=== PATIENT | female | born 1970 ===

== ENCOUNTER → 2020-05-14 14:34 | Outpatient (CLI) | payer BC, SELFPAY ==
[2020-05-14] MEDS: COVID-19 VACC(MODERNA-1)/PF 100 MCG/0.5 ML VIAL IM (14:46)
== END ==
PROVIDERS: Visit Provider Internal Medicine
DX: Z23 Encounter for immunization (principal)
CPT/HCPCS: 0011A; 91301

== ENCOUNTER → 2020-06-10 15:18 | Outpatient (CLI) | payer BC, SELFPAY ==
[2020-06-10] MEDS: COVID-19 VACC #2, MRNA(MOD) 100 MCG/0.5 ML VIAL IM (15:31)
== END ==
PROVIDERS: Visit Provider Internal Medicine
DX: Z23 Encounter for immunization (principal)
CPT/HCPCS: 0012A; 91301

== ENCOUNTER → 2021-02-17 11:17 | Outpatient (CLI) | payer BC, SELFPAY ==
[2021-02-17 12:17] LABS: COVID19 -Nasal RAPID Negative (Negative)
== END ==
PROVIDERS: Referring Provider Nurse Practitioner; Visit Provider Nurse Practitioner
DX: Z20.822 Contact with and (suspected) exposure to COVID-19 (principal); R09.81 Nasal congestion; R53.83 Other fatigue
CPT/HCPCS: 87635

== ENCOUNTER 2023-11-23 10:37 | Emergency (ER) | payer BC, SELFPAY ==
[2023-11-23 10:43] VITALS: BP 174/84; PULSE 84; RESP 14; TEMP 36.7; O2SAT 99; BMI 22.4
--- NOTE | 2023-11-23 10:46 | DI.RAD.S_ITS ---
PROCEDURE: XR FOOT LT MIN 3V INDICATIONS: foot pain TECHNIQUE: 3 views of the foot were acquired. COMPARISON: None. FINDINGS: Bones: Comminuted fracture of the proximal 2nd metatarsal shaft. No suspicious bony lesions. Plantar calcaneal enthesophyte. Soft tissues: No tibiotalar joint effusion. Achilles tendon appears normal. Dorsal foot swelling. IMPRESSION: Comminuted fracture of the proximal 2nd metatarsal shaft. Dictated by: Juan Francisco Woods M.D. on 11/23/2023 at 11:35 Approved by: Juan Francisco Woods M.D. on 11/23/2023 at 11:36
--- NOTE | 2023-11-23 11:12 | ED.LOWEXIN ---
HPI - Extremity Injury (Lower) General Chief Complaint: Extremity Injury, Lower Stated Complaint: L foot injury poss fracture Time Seen by Provider: 11/23/23 11:01 Source: patient Mode of arrival: Ambulatory History of Present Illness HPI Narrative: Patient is a 52-year-old female who is here for evaluation of a left foot injury. She states that last Sunday she was running in a race when she had a sudden increase in discomfort in the top of her left foot. She has been ambulatory since then but it has been causing quite a bit of pain. She stated that prior to the event on Sunday she did have discomfort in the left foot but she thought it was just the shoes that she was wearing and she was pressing on the foot. No other injuries from the event. No interventions prior to arrival. Related Data Home Medications Medication Instructions Recorded Confirmed sodium,potassium,mag sulfates 17.5 177 ml PO BID 01/22/23 01/22/23 gram-3.13 gram-1.6 gram oral soln Allergies Allergy/AdvReac Type Severity Reaction Status Date / Time No Known Drug Allergies Allergy Verified 11/23/23 10:44 Review of Systems Constitutional Constitutional: Reports system reviewed and no additional complaints, except as documented Musculoskeletal Musculoskeletal: Reports system reviewed and no additional complaints, except as documented Integumentary/Breasts Skin/Breast: Reports system reviewed and no additional complaints, except as documented Patient History Social History Smoking Status: Never smoker Smoking Status: Never smoker alcohol intake frequency: holidays/special occasions only Substance Use Type: does not use Exam Initial Vital Signs Initial Vital Signs: Vital Signs Temperature 98.0 F 11/23/23 10:43 Pulse Rate 84 11/23/23 10:43 Respiratory Rate 14 11/23/23 10:43 Blood Pressure 174/84 H 11/23/23 10:43 Pulse Oximetry 99 11/23/23 10:43 Oxygen Delivery Method Room Air 11/23/23 10:43 Cardio Pulses: dorsalis pedis present on the left Skin General: no rashes or lesions noted Neuro Sensory Exam: no sensory deficits noted Extrem Other: Discomfort with palpation over the metatarsal of the 2nd toe of the left foot. Procedures Orthopedic Splinting/Casting Injury #1: Side: left Lower Extremity Injury Location: foot Lower Extremity Immobilizer: posterior splint Other Orthopedic Equipment: crutches Post splinting neuro exam: intact and no change Post splinting vascular exam: no change Placed by: Nursing Course Orders Ordered: ED Orders 11/23/23 10:46 XR foot LT min 3V Stat Vital Signs Vital signs: Vital Signs - 8 hr 11/23/23 10:43 Temperature 98.0 F Pulse Rate 84 Respiratory Rate 14 Blood Pressure 174/84 H Pulse Oximetry 99 Oxygen Delivery Method Room Air MDM - Extremity Injury (Lower) Imaging Data Extremity x-ray #1: My Impression: Proximal 2nd metatarsal fracture MDM Narrative Medical decision making narrative: Patient was neurovascularly intact. She does have a fracture of the proximal end of the 2nd metatarsal of the left foot. Given her history this probably happened 1 week ago. Most likely a completion of a stress fracture. She was placed in a posterior splint and made nonweightbearing. Will have her follow up with Orthopedic surgery. She was given return precautions. She expressed understanding and agreement. Discharge Plan Departure Patient Disposition: Home Clinical Impression: Metatarsal fracture Instructions: How to Use Crutches, DI for Foot Fracture, How to Take Care of Your Splint Activity Restrictions/Additional Instructions: the splint that was placed today needs to be treated like a cast. You do need to use the crutches not walk on your left foot. You will need follow-up with Orthopedic surgery. Please contact them with the number provided below. Prescriptions: No Action sodium,potassium,mag sulfates 17.5-3.13-1.6 gram recon soln 177 ml PO BID Referrals: Shelley Monreal MD [Physician] - Miscellaneous,MD Elias [Primary Care Provider] - Stand Alone Forms: Patient Portal/API
[2023-11-23 11:59] VITALS: BP 135/79; PULSE 64; RESP 16; O2SAT 98
== END 2023-11-23 11:59 | disposition home or self-care (01) ==
PROVIDERS: Emergency Provider Emergency Medicine
DX: S92.322A Displaced fracture of second metatarsal bone, left foot, initial encounter for closed fracture (principal); X58.XXXA Exposure to other specified factors, initial encounter
CPT/HCPCS: 29515; 73630; 99283

== ENCOUNTER 2024-08-01 20:20 | Emergency (ER) | payer BC, SELFPAY ==
[2024-08-01 20:23] VITALS: BP 162/90; PULSE 68; RESP 18; TEMP 36.8; O2SAT 100; BMI 22.6
--- NOTE | 2024-08-01 20:28 | DI.RAD.S_ITS ---
PROCEDURE: XR WRIST RT MIN 3V INDICATIONS: fall on outstretched hand TECHNIQUE: 3 views of the wrist were acquired. COMPARISON: None. FINDINGS: Bones: Mildly comminuted, displaced intra-articular fracture of the distal right radius with dorsal angulation of the distal fracture fragment. Overlying soft tissue edema. Other visualized osseous structures appear intact. The scaphoid appears intact with normal scapholunate interval. No suspicious osseous lesions. Soft tissues: No suspicious soft tissue calcifications. IMPRESSION: Comminuted, intra-articular fracture of the distal right radius. Dictated by: Tony Puri M.D. on 08/01/2024 at 21:00 Approved by: Tony Puri M.D. on 08/01/2024 at 21:01
--- NOTE | 2024-08-01 20:28 | DI.RAD.S_ITS ---
PROCEDURE: XR HAND RT MIN 3V INDICATIONS: fall on outstretched hand TECHNIQUE: 3 views of the hand(s) acquired. COMPARISON: [facility], CR, XR WRIST RT MIN 3V, 08/01/2024, 20:28. FINDINGS: Bones: Comminuted, intra-articular fracture of the distal right radius with mild dorsal angulation of the distal fracture fragment. Overlying soft tissue swelling. Visualized osseous structures of the right hand appear intact without fracture or dislocation. Stable appears intact. Mild polyarticular background degenerative changes of the right hand. Soft tissues: No suspicious soft tissue calcifications. IMPRESSION: Comminuted, mildly displaced fracture of the distal right radius with intra-articular extension. No acute fractures or dislocations visualized in the bony structures of the right hand. Background degenerative changes. Dictated by: Tony Puri M.D. on 08/01/2024 at 21:01 Approved by: Tony Puri M.D. on 08/01/2024 at 21:03
--- NOTE | 2024-08-01 20:28 | DI.RAD.S_ITS ---
PROCEDURE: XR FOREARM RT 2V INDICATIONS: fall on outstretched hand TECHNIQUE: 2 views of the forearm were acquired. COMPARISON: None. FINDINGS: Bones: Comminuted intra-articular fracture of the distal right radius with dorsal angulation of the distal fracture fragment. Overlying soft tissue edema. Ulna appears intact. No suspicious osseous lesions. Soft tissues: No suspicious soft tissue calcifications or masses. IMPRESSION: Comminuted, intra-articular fracture of the distal right radius. Dictated by: Tony Puri M.D. on 08/01/2024 at 20:59 Approved by: Tony Puri M.D. on 08/01/2024 at 21:00
--- NOTE | 2024-08-01 23:52 | ED.GENADULT ---
HPI - General Adult General Chief complaint: Extremity Injury, Upper Stated complaint: Fall, wrist injury, no blood thinners Time Seen by Provider: 08/01/24 20:58 Source: patient Mode of arrival: Ambulatory History of Present Illness HPI narrative: 53-year-old woman with no significant medical history had a fall on outstretched hand landing on her right wrist earlier today. There is moderate deformity, pain she declines any pain medication on triage. She is neurovascularly intact. The wrist is her only area of concern. No tenderness of the shoulder and full range of motion of the elbow. Related Data Home Medications Medication Instructions Recorded Confirmed sodium,potassium,mag sulfates 17.5 177 ml PO BID 01/22/23 01/22/23 gram-3.13 gram-1.6 gram oral soln Allergies Allergy/AdvReac Type Severity Reaction Status Date / Time No Known Drug Allergies Allergy Verified 11/23/23 10:44 Review of Systems Review of Systems Narrative: Pertinent positive and negative findings as per HPI Patient History Social History Smoking Status: Never smoker Smoking Status: Never smoker alcohol intake frequency: holidays/special occasions only Exam Initial Vital Signs Initial Vital Signs: Vital Signs Temperature 98.2 F 08/01/24 20:23 Pulse Rate 68 08/01/24 20:23 Respiratory Rate 18 08/01/24 20:23 Blood Pressure 162/90 H 08/01/24 20:23 Pulse Oximetry 100 08/01/24 20:23 Oxygen Delivery Method Room Air 08/01/24 20:23 General: Alert appropriate in no acute distress Respiratory: Able to speak in full sentences, no obvious respiratory distress Skin: No obvious rashes, warm and dry Neurologic: Grossly intact no obvious asymmetries or abnormalities Psych: appropriate insight and affect, cooperative Extremity: Right wrist with some swelling over the dorsum. No lacerations. She is neurovascularly intact. Elbow is able to fully extend without pain or tenderness. Course Orders Ordered: ED Orders 08/01/24 20:28 XR forearm RT 2V Stat XR hand RT min 3V Stat XR wrist RT min 3V Stat Vital Signs Vital signs: Vital Signs - 8 hr 08/02/24 00:29 Pulse Rate 62 Respiratory Rate 16 Blood Pressure 147/79 H Pulse Oximetry 99 Oxygen Delivery Method Room Air Medical Decision Making MDM Narrative Medical decision making narrative: 53-year-old otherwise healthy woman who fell on a right outstretched wrist with a distal radial fracture, intra-articular comminuted slightly angulated but otherwise neurovascularly intact. No other trauma appreciated. She is placed in a sugar-tong splint by nursing staff. Remains neurovascularly intact post splint placement. She has given a sling for comfort. Again, declines any pain medication. We will recommend orthopedic follow up for definitive treatment of her distal radius fracture. Instructions were given questions are answered and she is safe for discharge Discharge Plan Departure Patient Disposition: Home Clinical Impression: Distal radius fracture, right Qualifiers: Encounter type: initial encounter Fracture type: closed Fracture morphology: other intra-articular Qualified Code(s): S52.571A - Other intraarticular fracture of lower end of right radius, initial encounter for closed fracture Instructions: DI for Wrist Fracture Activity Restrictions/Additional Instructions: Thank you for coming in today You did break your wrist. It does not look like you had any other injury with your fall I have placed you in a splint in the emergency department along with a sling to help support the splint. You do need to call [facility] at [phone] to schedule an appointment for consultation and definitive treatment for your wrist fracture. They will re-evaluate you, likely will repeat the x-rays and decide whether you need any type of procedure to reset the wrist or if the simple cast is going to be appropriate. Using 400 mg of ibuprofen (2 [id number] pills) and 1 Tylenol every 6 hours can be very helpful in controlling pain. Ice on the outside of the splint can also be helpful with swelling and pain. If you find that you are getting worse or develop any new symptoms, please feel free to return to the emergency department for further evaluation. Prescriptions: No Action sodium,potassium,mag sulfates 17.5-3.13-1.6 gram recon soln 177 ml PO BID Referrals: Shannan Carr PA-C [Primary Care Provider] - Stand Alone Forms: Patient Portal/API/Survey
[2024-08-02 00:29] VITALS: BP 147/79; PULSE 62; RESP 16; O2SAT 99
== END 2024-08-02 00:18 | disposition home or self-care (01) ==
PROVIDERS: Emergency Provider Emergency Medicine; PCP Physician Assistant
DX: S52.571A Other intraarticular fracture of lower end of right radius, initial encounter for closed fracture (principal); W18.30XA Fall on same level, unspecified, initial encounter
CPT/HCPCS: 29125; 73090; 73110; 73130; 99281; 99283